=== PATIENT | female | born 1940 | race Caucasian/White ===

== ENCOUNTER 2021-07-27 10:17 | Inpatient (IN) | payer OTHER ==
[2021-07-27 11:39] LABS: Absolute Lymphocytes (CBC) 0.6 K/uL (0.7-4.9); Basophils % 0.2 % (0-1.3); Hematocrit 42.3 % (36.0-45.0); MPV 7.3 fL (7.6-11.3); RBC Red Blood Cell Count 4.66 M/uL (3.86-4.86)
[2021-07-27] MEDS ORDERED: NA CHLORIDE 0.9% 500 ML ONE (11:48)
[2021-07-27] MEDS ORDERED: NA CHLORIDE 0.9% 1,000 ML ONE (11:48)
[2021-07-27 11:56] LABS: Bilirubin Direct 0.2 mg/dL (0-0.2); Bilirubin Total 0.5 mg/dL (0.2-1.0); Potassium 3.5 mmol/L (3.5-5.1); Protein, Total 7.2 g/dL (6.4-8.2)
--- NOTE | 2021-07-27 12:38 | RAD REPORT ---
EXAM DESCRIPTION: CT - Abdomen Pelvis W Contrast - 07/27/2021 12:23 pm CLINICAL HISTORY: Abdominal pain COMPARISON: none. TECHNIQUE: Computed axial tomography of the abdomen pelvis was obtained. 100 cc Isovue-300 was admin istered intravenously. Oral contrast was not requested which limits evaluation of bowel. All CT scans are performed using dose optimization technique as appropriate and may include automated exposure control or mA/KV adjustment according to patient size. FINDINGS: The liver, spleen, pancreas, adrenal and kidneys appear unremarkable. There is no evidence of diverticulitis. Normal appendix. 15 millimeter right adnexal cyst. Small amount of free fluid. Tiny umbilical hernia IMPRESSION: A 15 millimeter right adnexal cyst likely benign. Small amount of ascites within the pelvis.
[2021-07-27] MEDS ORDERED: MORPHINE 2 MG/ML SYR ONE (12:55)
[2021-07-27] MEDS ORDERED: ONDANSETRON 4 MG/2 ML VIAL ONE (12:55)
[2021-07-27 13:20] LABS: Blood Morphology Comment NOT SEEN (NOT SEEN); Platelet Estimate ADEQ; White Blood Cell Scan OK (OK)
[2021-07-27 13:31] LABS: Urine Amorphous Sediment 1+ /HPF (NONE SEEN); Urine Bacteria <20 /HPF (<20); Urine Mucus 1+ /HPF (NONE SEEN); Urine RBC <5 /HPF (NONE SEEN)
[2021-07-27 13:39] LABS: SARS-COV-2 RT PCR NEGATIVE (NEGATIVE)
[2021-07-27] MEDS ORDERED: FENTANYL CITR 100 MCG/2 ML ONE (15:39)
--- NOTE | 2021-07-27 17:12 | ER ---
Nurse's Notes [facility] Name: Rebecca Chan Age: 81 yrs Sex: Female : 1940 Arrival Date: 07/27/2021 Time: 10:21 Bed 20 Private MD: Diagnosis: Diarrhea, unspecified;Dehydration Presentation: 07/27 10:35 Chief complaint: Patient states: pain all over, generalized weakness since yesterday. aa5 Pt reports recent UTI and antibiotics (Flagyl) gave her a yeast infection. Reports antibiotics also gave her diarrhea. Coronavirus screen: At this time, the client does not indicate any symptoms associated with coronavirus-19. Ebola Screen: No symptoms or risks identified at this time. Initial Sepsis Screen: Does the patient meet any 2 criteria? HR > 90 bpm. Does the patient have a suspected source of infection? Yes:. Risk Assessment: Do you want to hurt yourself or someone else? Patient reports no desire to harm self or others. Onset of symptoms was July 2021. 10:35 Acuity: JOHN 3 aa5 10:35 Method Of Arrival: Wheelchair aa5 Triage Assessment: 13:53 General: Appears in no apparent distress. well groomed, Behavior is calm, cooperative, sl2 appropriate for age. 13:59 Pain: Complains of pain in Generalized body pain Pain does not radiate. Pain currently sl2 is 6 out of 10 on a pain scale. Quality of pain is described as aching. Historical: - Allergies: 10:47 Amoxicillin; aa5 10:47 Ciprofloxacin; aa5 10:47 Bactrim; aa5 10:47 Macrobid; aa5 - Home Meds: 17:03 meloxicam 15 mg oral TbDi 1 tab once daily [Active]; lisinopril 1 mg/mL Oral soln 40 mL sl2 once daily [Active]; amlodipine 2.5 mg tab 1 tab once daily [Active]; hyoscyamine sulfate 0.125 mg SL subl 0.125 mg every 4 hours for as needed [Active]; - PMHx: 10:37 Hypertensive disorder; aa5 10:47 osteoarhritis; aa5 - Immunization history:: Adult Immunizations up to date, Client reports receiving the 2nd dose of the Covid vaccine. - Social history:: Smoking status: Patient denies any tobacco usage or history of. Screenin:50 Abuse screen: Denies threats or abuse. sl2 10:50 Nutritional screening: No deficits noted. Tuberculosis screening: No symptoms or risk sl2 factors identified. Never had TB. Possible symptoms: None Risk factors: None. Fall Risk No fall in past 12 months (0 pts). No secondary diagnosis (0 pts). No IV (0 pts). Ambulatory Aid- Crutches/Cane/Walker (15 pts). Gait- Weak (10 pts.). Mental Status- Oriented to own ability (0 pts). Vital Signs: 10:35 BP 116 / 73; Pulse 108; Resp 18 S; Temp 98.0(TE); Pulse Ox 100% on R/A; aa5 12:45 BP 115 / 79; Pulse 115; Resp 20; Pulse Ox 100% on R/A; sl2 13:00 BP 117 / 85; Pulse 120; Resp 18; Temp 98.5; Pulse Ox 99% on R/A; sl2 13:45 BP 116 / 76; Pulse 116; Resp 18; Temp 98.9; Pulse Ox 99% on R/A; sl2 14:00 BP 125 / 75; Pulse 115; Resp 18; Temp 99.2; Pulse Ox 99% on R/A; sl2 14:30 BP 137 / 65; Pulse 115; Resp 18; Pulse Ox 99% on R/A; sl2 14:45 BP 132 / 78; Pulse 118; Resp 18; Pulse Ox 100% on R/A; sl2 15:43 BP 126 / 60 RA Supine (auto/); Pulse 116; Pulse Ox 99% on R/A; dh4 15:43 BP 123 / 68 RA Sitting (auto/); Pulse 125; Pulse Ox 98% on R/A; dh4 15:43 BP 123 / 101 RA Standing (auto/); Pulse 129; Pulse Ox 98% on R/A; dh4 17:00 BP 128 / 93; Pulse 115; Resp 18; Temp 99.8; Pulse Ox 99% ; sl2 ED Course: 10:21 Patient arrived in ED. rg4 10:34 Arm band placed on. aa5 10:37 Triage completed. aa5 10:47 Robinson Hsieh NP is PHCP. pm1 10:47 Edwin Corado MD is Attending Physician. pm1 10:50 Patient has correct armband on for positive identification. Placed in gown. Bed in low sl2 position. Call light in reach. Side rails up X2. Adult w/ patient. 10:50 No provider procedures requiring assistance completed. sl2 10:53 Lizbeth Schumacher, SHAMIKA is Primary Nurse. sl2 11:42 Initial lab(s) drawn, by me, sent to lab. COVID swab sent to lab. Inserted saline lock: sl2 20 gauge in right forearm, using aseptic technique. Blood collected. 12:23 CT Abd/Pelvis - IV Contrast Only In Process Unspecified. EDMS 17:11 Caio Umanzor DO is Hospitalizing Provider. pm1 Administered Medications: 01:00 Drug: morphine 2 mg Route: IVP; Site: right hand; sl2 13:41 Follow up: Response: No adverse reaction; Marked relief of symptoms; Pain is decreased sl2 11:30 Drug: NS 0.9% 500 ml Route: IV; Rate: bolus; Site: right forearm; sl2 12:40 Follow up: Response: No adverse reaction; IV Status: Completed infusion; IV Intake: sl2 500ml 12:42 Drug: NS 0.9% 1000 ml Route: IV; Rate: 125 ml/hr; Site: right hand; sl2 13:44 Follow up: IV Status: Infusion continued sl2 12:58 Drug: Zofran (Ondansetron) 4 mg Route: IVP; Site: right hand; sl2 13:41 Follow up: Response: No adverse reaction; Marked relief of symptoms; Pain is decreased sl2 13:42 Follow up: Response: Nausea is decreased sl2 15:41 Drug: fentaNYL (PF) 25 mcg Route: IVP; Site: right hand; sl2 15:58 Follow up: Response: Marked relief of symptoms sl2 15:57 Drug: NS 0.9% 500 ml Route: IV; Rate: bolus; Site: right hand; sl2 17:43 Follow up: Response: No adverse reaction; IV Status: Completed infusion; IV Intake: iw 500ml Intake: 12:40 IV: 500ml; Total: 500ml. sl2 17:43 IV: 500ml; Total: 1000ml. iw Outcome: 17:11 Decision to Hospitalize by Provider. pm1 18:11 Patient left the ED. iw Signatures: Dispatcher [employer] EDMS Thomas, Kayli, RN RN iw Vicky Henry RN RN aa5 Robinson Hsieh, WASHER ASSEMBLER WASHER ASSEMBLER pm1 Lashell Baxter rg4 Greg Sanchez 4 Lizbeth Schumacher RN RN sl2 Corrections: (The following items were deleted from the chart) 10:47 10:35 Chief complaint: Patient states: pain all over, generalized weakness since aa5 yesterday. Pt reports recent UTI and antibiotics gave her a yeast infection. Reports antibiotics also gave her diarrhea. aa5 10:47 10:46 Allergies: Flagyl; aa5 aa5 10:48 10:37 PMHx: Arthritis; aa5 aa5 14:15 13:45 BP 116 / 76; Pulse 116bpm; Resp 18bpm; Pulse Ox 99% RA; Temp 98.2F; sl2 sl2
--- NOTE | 2021-07-27 17:12 | EDPHYS ---
Physician Documentation [facility] Name: Rebecca Chan Age: 81 yrs Sex: Female : 1940 Arrival Date: 07/27/2021 Time: 10:21 Bed 20 Private MD: ED Physician Edwin Corado HPI: 07/27 11:49 This 81 yrs old Female presents to ER via Wheelchair with complaints of Pain All Over. pm1 11:49 Patient presenting to the ER with complaints of generalized pain all over. Patient has pm1 been having diarrhea onset end of last week that she attributes to recent antibiotic use for UTI. Onset: The symptoms/episode began/occurred Patient also reporting generalized weakness onset yesterday. Associated signs and symptoms: Pertinent positives: diarrhea, Pertinent negatives: abdominal pain, cough, fever, shortness of breath, vomiting. Modifying factors: The patient symptoms are alleviated by Symptoms improved with Pedialyte given to the patient last night by [id number], the patient symptoms are aggravated by nothing. Severity of symptoms: in the emergency department the symptoms have improved. The patient has not experienced similar symptoms in the past. The patient has been recently seen by a physician: the patient's primary care provider, Last week for yeast infection and UTI. Patient is visiting from out of town. Historical: - Allergies: 10:47 Amoxicillin; aa5 10:47 Ciprofloxacin; aa5 10:47 Bactrim; aa5 10:47 Macrobid; aa5 - Home Meds: 17:03 meloxicam 15 mg oral TbDi 1 tab once daily [Active]; lisinopril 1 mg/mL Oral soln 40 mL sl2 once daily [Active]; amlodipine 2.5 mg tab 1 tab once daily [Active]; hyoscyamine sulfate 0.125 mg SL subl 0.125 mg every 4 hours for as needed [Active]; - PMHx: 10:37 Hypertensive disorder; aa5 10:47 osteoarhritis; aa5 - Immunization history:: Adult Immunizations up to date, Client reports receiving the 2nd dose of the Covid vaccine. - Social history:: Smoking status: Patient denies any tobacco usage or history of. ROS: 11:49 Cardiovascular: Negative for chest pain, palpitations, and edema, Respiratory: Negative pm1 for shortness of breath, cough, wheezing, and pleuritic chest pain. 11:49 MS/Extremity: Negative for injury and deformity, Skin: Negative for injury, rash, and discoloration, Neuro: Negative for headache, weakness, numbness, tingling, and seizure. 11:49 Constitutional: Positive for body aches, poor PO intake, Negative for fever. 11:49 Abdomen/GI: Positive for diarrhea, Negative for abdominal pain, nausea, vomiting. 11:49 All other systems are negative. Exam: 11:49 Constitutional: This is a well developed, well nourished patient who is awake, alert, pm1 and in no acute distress. Head/Face: Normocephalic, atraumatic. 11:49 Back: No spinal tenderness. No costovertebral tenderness. Full range of motion. Skin: Warm, dry with normal turgor. Normal color with no rashes, no lesions, and no evidence of cellulitis. MS/ Extremity: Pulses equal, no cyanosis. Neurovascular intact. Full, normal range of motion. 11:49 Eyes: Exam is negative for acute changes, Periorbital structures: appear normal, Extraocular movements: no acute changes, Sclera: no acute changes, icterus, is not appreciated. 11:49 ENT: Exam is negative for acute changes, Mouth: no acute changes, Lips: normal, moist, Oral mucosa: normal, pink and intact, moist. 11:49 Cardiovascular: Exam negative for acute changes, Rate: tachycardic, Rhythm: regular, Pulses: no pulse deficits are appreciated. 11:49 Respiratory: Exam negative for acute changes, respiratory distress, shortness of breath, Breath sounds: are clear throughout. 11:49 Abdomen/GI: Exam negative for acute changes, Inspection: abdomen appears normal, Palpation: abdomen is soft and non-tender, in all quadrants. 11:49 Neuro: Exam negative for acute changes, Orientation: is normal, Mentation: is normal, Motor: is normal, moves all fours. Vital Signs: 10:35 BP 116 / 73; Pulse 108; Resp 18 S; Temp 98.0(TE); Pulse Ox 100% on R/A; aa5 12:45 BP 115 / 79; Pulse 115; Resp 20; Pulse Ox 100% on R/A; sl2 13:00 BP 117 / 85; Pulse 120; Resp 18; Temp 98.5; Pulse Ox 99% on R/A; sl2 13:45 BP 116 / 76; Pulse 116; Resp 18; Temp 98.9; Pulse Ox 99% on R/A; sl2 14:00 BP 125 / 75; Pulse 115; Resp 18; Temp 99.2; Pulse Ox 99% on R/A; sl2 14:30 BP 137 / 65; Pulse 115; Resp 18; Pulse Ox 99% on R/A; sl2 14:45 BP 132 / 78; Pulse 118; Resp 18; Pulse Ox 100% on R/A; sl2 15:43 BP 126 / 60 RA Supine (auto/); Pulse 116; Pulse Ox 99% on R/A; dh4 15:43 BP 123 / 68 RA Sitting (auto/); Pulse 125; Pulse Ox 98% on R/A; dh4 15:43 BP 123 / 101 RA Standing (auto/); Pulse 129; Pulse Ox 98% on R/A; dh4 17:00 BP 128 / 93; Pulse 115; Resp 18; Temp 99.8; Pulse Ox 99% ; sl2 MDM: 10:51 Patient medically screened. pm1 17:11 Data reviewed: vital signs. Data interpreted: Pulse oximetry: on room air is 99 %. pm1 Interpretation: normal. Counseling: I had a detailed discussion with the patient and/or guardian regarding: the historical points, exam findings, and any diagnostic results supporting the discharge/admit diagnosis, lab results, radiology results, the need for further work-up and treatment in the hospital. 07/27 11:02 Order name: Basic Metabolic Panel; Complete Time: 12:19 pm1 07/27 11:02 Order name: CBC with Diff; Complete Time: 13:52 pm1 07/27 11:02 Order name: Hepatic Function; Complete Time: 12:19 pm1 07/27 11:02 Order name: Lipase; Complete Time: 12:19 pm1 07/27 11:02 Order name: Urine Microscopic Only; Complete Time: 13:52 pm1 07/27 11:02 Order name: COVID-19/FLU A+B (Document "Date of Onset" if Symptomatic); Complete Time: pm1 13:52 07/27 11:02 Order name: CT Abd/Pelvis - IV Contrast Only; Complete Time: 12:40 pm1 07/27 13:21 Order name: CBC Smear Scan; Complete Time: 13:52 EDMS 07/27 11:02 Order name: IV Saline Lock; Complete Time: 11:47 pm1 07/27 11:02 Order name: Labs collected and sent; Complete Time: 11:47 pm1 07/27 11:02 Order name: Urine Dipstick-Ancillary (obtain specimen); Complete Time: 13:42 pm1 07/27 11:02 Order name: Straight Cath - Urine; Complete Time: 13:42 pm1 07/27 15:26 Order name: Orthostatic Blood Pressure; Complete Time: 15:47 pm1 07/27 17:44 Order name: Diet Clear Liquid; Complete Time: 17:45 iw Administered Medications: 01:00 Drug: morphine 2 mg Route: IVP; Site: right hand; sl2 13:41 Follow up: Response: No adverse reaction; Marked relief of symptoms; Pain is decreased sl2 11:30 Drug: NS 0.9% 500 ml Route: IV; Rate: bolus; Site: right forearm; sl2 12:40 Follow up: Response: No adverse reaction; IV Status: Completed infusion; IV Intake: sl2 500ml 12:42 Drug: NS 0.9% 1000 ml Route: IV; Rate: 125 ml/hr; Site: right hand; sl2 13:44 Follow up: IV Status: Infusion continued sl2 12:58 Drug: Zofran (Ondansetron) 4 mg Route: IVP; Site: right hand; sl2 13:41 Follow up: Response: No adverse reaction; Marked relief of symptoms; Pain is decreased sl2 13:42 Follow up: Response: Nausea is decreased sl2 15:41 Drug: fentaNYL (PF) 25 mcg Route: IVP; Site: right hand; sl2 15:58 Follow up: Response: Marked relief of symptoms sl2 15:57 Drug: NS 0.9% 500 ml Route: IV; Rate: bolus; Site: right hand; sl2 17:43 Follow up: Response: No adverse reaction; IV Status: Completed infusion; IV Intake: iw 500ml Disposition: 07/28 08:14 Co-signature as Attending Physician, Edwin Corado MD I agree with the assessment and kdr plan of care. Disposition Summary: 07/27/21 17:11 Hospitalization Ordered Hospitalization Status: Observation pm1 Provider: Caio Umanzor pm1 Location: Telemetry/MedSurg (observation) pm1 Condition: Stable pm1 Problem: new pm1 Symptoms: have improved pm1 Bed/Room Type: Standard pm1 Room Assignment: 408(07/27/21 17:42) dw Diagnosis - Diarrhea, unspecified pm1 - Dehydration pm1 Forms: - Medication Reconciliation Form pm1 - SBAR form pm1 Signatures: Dispatcher [employer] Judy Puga RN RN Edwin Corado MD MD kdr Calderon, Audri, RN RN aa5 Robinson Hsieh NP WELLNESS NURSE pm1 Lizbeth Schumacher RN RN sl2 Kayli Guzman RN iw Corrections: (The following items were deleted from the chart) 07/27 10:47 10:46 Allergies: Flagyl; aa5 aa5 10:48 10:37 PMHx: Arthritis; aa5 aa5 17:42 17:11 pm1 dw
--- NOTE | 2021-07-27 17:31 | P.HP ---
Certification for Inpatient Patient admitted to: Observation With expected LOS: <2 Midnights Patient will require the following post-hospital care: None Practitioner: I am a practitioner with admitting privileges, knowledge of patient current condition, hospital course, and medical plan of care. Services: Services provided to patient in accordance with Admission requirements found in Title 42 Section 412.3 of the Code of Federal Regulations Patient History Date of Service: 07/27/21 Primary Care Provider: BECKY Martell Reason for admission: Diarrhea, body aches History of Present Illness: 81-year-old female with history of hypertension, arthritis presented to the emergency room with diarrhea and body aches. Patient is visiting in the area. Patient recently diagnosed with UTI. She was given antibiotic treatment by her PCP. She took medication for 3 days and started to notice some diarrhea. She called her PCP who recommended to discontinue medication. She came to the area to visit. Diarrhea was noted. She denied any fever, chills, shortness of breath or chest pain. She had some weakness and body aches today. She came to the ER for further evaluation. In the ER patient was evaluated. Patient appeared slightly dehydrated. Patient received IV fluids. White count 12, hemoglobin 14. Platelet count 425. Urinalysis unremarkable. Sodium 130, potassium 3.5. BUN of 20, creatinine 1.36 with a GFR of 37. Glucose 153. CT scan showed no significant obstruction or inflammation. Patient was given IV fluids in the emergency room. Patient was admitted for observation. Home medications list reviewed: Yes - Past Medical/Surgical History Diabetic: No -: Hypertension -: Arthritis Past Surgical History: Reviewed- Non-Contributory Psychosocial/ Personal History: Patient is - Family History Family History: Reviewed- Non-Contributory - Social History Smoking Status: Never smoker Alcohol use: No CD- Drugs: No Caffeine use: No Place of Residence: Home Review of Systems General: Weakness, As per HPI Eyes: Unremarkable ENT: Unremarkable Respiratory: Unremarkable Cardiovascular: Unremarkable Gastrointestinal: Diarrhea, As per HPI Genitourinary: Unremarkable Musculoskeletal: As per HPI Integumentary: Unremarkable Neurological: Unremarkable Lymphatics: Unremarkable Physical Examination - Studies Laboratory Data (last 24 hrs) 07/27/21 11:10: WBC 12.00 H, Hgb 14.4, Hct 42.3, Plt Count 425 H 07/27/21 11:10: Sodium 130 L, Potassium 3.5, BUN 20 H, Creatinine 1.36 H, Glucose 153 H, Total Bilirubin 0.5, AST 16, ALT 18, Alkaline Phosphatase 82, Lipase 187 Assessment and Plan - Plan COVID: Pending CT scan: COMPARISON: none. TECHNIQUE: Computed axial tomography of the abdomen pelvis was obtained. 100 cc Isovue-300 was administered intravenously. Oral contrast was not requested which limits evaluation of bowel. All CT scans are performed using dose optimization technique as appropriate and may include automated exposure control or mA/KV adjustment according to patient size. FINDINGS: The liver, spleen, pancreas, adrenal and kidneys appear unremarkable. There is no evidence of diverticulitis. Normal appendix. 15 millimeter right adnexal cyst. Small amount of free fluid. Tiny umbilical hernia IMPRESSION: A 15 millimeter right adnexal cyst likely benign. Small amount of ascites within the pelvis. Physical Exam: GENERAL: The patient is a well-developed, well-nourished, in no apparent distress. Alert and oriented x3. VITAL SIGNS: Reviewed HEENT: Head is normocephalic and atraumatic. Extraocular muscles are intact. Pupils are equal, round, and reactive to light and accommodation. Nares appeared normal. Mouth is well hydrated and without lesions. Mucous membranes are moist. NECK: Supple. No carotid bruits. No lymphadenopathy or thyromegaly. LUNGS: Clear to auscultation. No crackles or wheezes are heard. HEART: Regular rate and rhythm, no appreciable gallops, rubs, murmurs or extra heart sounds ABDOMEN: Soft, nontender, and nondistended. Positive bowel sounds. No hepatosplenomegaly was noted. EXTREMITIES: Without any cyanosis, clubbing, rash, lesions or peripheral edema. NEUROLOGIC: The patient is oriented to person, place and time. Strength and sensation are grossly intact. Face is symmetric. SKIN: Normal color, turgor and temperature. No ulcerations or rashes noted. Impression: Diarrhea, body aches suspect viral gastroenteritis with dehydration Hyponatremia secondary to above Possible underlying acute on chronic renal disease stage III Hypertension Arthritis Plan: Patient admitted for further evaluation and treatment. Patient recently treated for UTI. Antibiotics have been discontinued. Patient received IV fluids. We will continue with IV fluid hydration. Recheck lab in the morning. Electrolyte protocol in place. Will provide lactobacillus. Will provide medication for diarrhea. If diarrhea persists will obtain evaluation for C. difficile. Suspect improvement with hydration. Continue with home medication lisinopril. Hold Norvasc. Will provide metoprolol instead. Will make changes to her medications as appropriate. Will provide medication for GERD. Hold meloxicam which she takes for arthritis. Will provide tramadol as needed for pain. Monitor renal function closely. Anticipate improvement overnight. Physical therapy assess ambulation. Case discussed in detail with patient and family. Anticipate home tomorrow. Code Status: Full Code DVT prophylaxis: Heparin Advanced Care Planning-30 minutes: Home at discharge Discharge Plan: Home Plan to discharge in: 24 Hours - Advance Directives Does patient have a Living Will: No Does patient have a Durable POA for Healthcare: No - Code Status/Comfort Care Code Status Assessed: Yes (Patient is full code) Time Spent Managing Pts Care (In Minutes): 55
[2021-07-27 18:31] VITALS: BMI 23.2
[2021-07-27] MEDS: METOPROLOL TAR 25 MG TAB PO SCH (18:31)
[2021-07-27] MEDS ORDERED: ACETAMINOPHEN 500 MG TAB PO PRN (18:31)
[2021-07-27] MEDS ORDERED: ONDANSETRON 4 MG/2 ML VIAL IV PRN (18:31)
[2021-07-27] MEDS: NA CHLORIDE 0.9% 1,000 ML IV SCH (18:31)
[2021-07-27] MEDS ORDERED: LOPERAMIDE HCL 2 MG CAPSULE PO PRN (18:31)
[2021-07-27] MEDS: lisinopriL 20 MG TAB PO SCH (21:40)
[2021-07-27] MEDS: HEPARIN 5000 UNIT/ML 1 ML VIAL SQ SCH (21:41)
[2021-07-27] MEDS: LACTOBACILLUS/ACIDOPHILUS TAB PO SCH (21:41)
[2021-07-28] MEDS ORDERED: CIPROFLOXACIN 400mg IV 400 MG/200 ML BAG IV SCH
[2021-07-28] MEDS ORDERED: METRONIDAZOLE 500mg IVPB 500 MG/100 ML BAG IV SCH (01:00)
[2021-07-28 04:13] LABS: Absolute Lymphocytes (CBC) 0.4 K/uL (0.7-4.9); Basophils % 0.1 % (0-1.3); Hematocrit 35.7 % (36.0-45.0); Lymphocytes % 3.3 % (15.3-44.8); MPV 7.4 fL (7.6-11.3)
[2021-07-28 04:30] LABS: Albumin 2.1 g/dL (3.4-5.0); Bilirubin Total 0.4 mg/dL (0.2-1.0); Magnesium 1.6 mg/dL (1.8-2.4); Protein, Total 5.7 g/dL (6.4-8.2)
[2021-07-28 05:38] LABS: Blood Morphology Comment NOT SEEN (NOT SEEN); Platelet Estimate ADEQ
[2021-07-28] MEDS: METOPROLOL TAR 25 MG TAB PO SCH ×2 (06:06→17:13)
--- NOTE | 2021-07-28 06:09 | P.PN ---
Subjective Date of Service: 07/28/21 Primary Care Provider: BECKY Martell Chief Complaint: Diarrhea, body aches Subjective: Other (Patient had increased diarrhea last night with fever. T-max 103.4) Physical Examination - Vital Signs Temperature: 98.3 F Blood Pressure: 127/64 Pulse: 113 Respirations: 22 Pulse Ox (%): 94 - Studies Laboratory Data (last 24 hrs) 07/27/21 11:10: WBC 12.00 H, Hgb 14.4, Hct 42.3, Plt Count 425 H 07/27/21 11:10: Sodium 130 L, Potassium 3.5, BUN 20 H, Creatinine 1.36 H, Glucose 153 H, Total Bilirubin 0.5, AST 16, ALT 18, Alkaline Phosphatase 82, Lipase 187 Assessment & Plan Discharge Plan: Home Plan to discharge in: 24 Hours Physician Review Additional Text: COVID: Pending CT scan: COMPARISON: none. TECHNIQUE: Computed axial tomography of the abdomen pelvis was obtained. 100 cc Isovue-300 was administered intravenously. Oral contrast was not requested which limits evaluation of bowel. All CT scans are performed using dose optimization technique as appropriate and may include automated exposure control or mA/KV adjustment according to patient size. FINDINGS: The liver, spleen, pancreas, adrenal and kidneys appear unremarkable. There is no evidence of diverticulitis. Normal appendix. 15 millimeter right adnexal cyst. Small amount of free fluid. Tiny umbilical hernia IMPRESSION: A 15 millimeter right adnexal cyst likely benign. Small amount of ascites within the pelvis. Physical Exam: GENERAL: The patient is a well-developed, well-nourished, in no apparent distress. Alert and oriented x3. VITAL SIGNS: Reviewed HEENT: Neck supple LUNGS: Clear to auscultation. No crackles or wheezes are heard. HEART: Regular rate and rhythm, no appreciable gallops, rubs, murmurs or extra heart sounds ABDOMEN: Soft, nontender, and nondistended. Positive bowel sounds. No hepatosplenomegaly was noted. EXTREMITIES: Without any cyanosis, clubbing, rash, lesions or peripheral edema. NEUROLOGIC: The patient is oriented to person, place and time. Strength and sensation are grossly intact. Face is symmetric. SKIN: Normal color, turgor and temperature. No ulcerations or rashes noted. Impression: Diarrhea, body aches with dehydration likely C. difficile colitis Hyponatremia secondary to above Possible underlying acute on chronic renal disease stage III Hypertension Arthritis Plan: Diarrhea, body aches with dehydration likely C. difficile colitis: Patient had fever last night with diarrhea. Patient recently treated for UTI on antibiotic therapy. Suspect C. difficile colitis. Continue with lactobacillus. Patient was initially placed on IV Cipro and Flagyl. Will change to oral vancomycin as c diff is suspected. Cultures pending. Will monitor diarrhea closely. Continue IV hydration. Still unstable for discharge. Suspect continued improvement over the next 24 to 48 hours. I will turn the service over to the hospitalist team tomorrow. I will plan of care with him. Hyponatremia secondary to above: Overall improved. Continue IV fluids. Electrolyte protocol in place. Possible underlying acute on chronic renal disease stage III: Overall improved. Continue IV fluids. Hypertension: Need to obtain and verify home medication. Patient takes lisinopril and Norvasc. Lisinopril was continued. Norvasc was changed to metoprolol. Consider lisinopril and metoprolol at discharge. Parameters in place to hold medication if blood pressure systolic less than 110. Arthritis: We will provide medication for pain. Physical therapy to assess ambulation. Code Status: Full Code DVT prophylaxis: Heparin Advanced Care Planning-30 minutes: Home at discharge Time Spent Managing Pts Care (In Minutes): 55
--- NOTE | 2021-07-28 07:20 | RAD REPORT ---
EXAM DESCRIPTION: RAD - Chest Single View - 07/28/2021 5:37 am CLINICAL HISTORY: R/O pneumonia COMPARISON: CT abdomen July 27 TECHNIQUE: AP portable chest image was obtained 07/28/2021 5:37 am . FINDINGS: No acute infiltrates seen. Minimal stranding in the left base is not believed to be pneumo yordan. Lung bases were clear on the prior day CT study. Repeat imaging can be performed as warranted. No failure or volume overload. Interstitial pattern not outside of normal range. Trachea is midline. Heart and vasculature are normal. No measurable pleural effusion and no pneumothorax. No acute bony abnormality seen. No acute aortic findings suspected. IMPRESSION: No acute cardiopulmonary process. Minimal stranding at the left base is believed be atelectasis rather than infiltrate. Follow-up imagi ng can be performed if patient has persistent or progressive symptoms.
[2021-07-28] MEDS: NA CHLORIDE 0.9% 1,000 ML IV SCH ×2 (08:11→15:01)
[2021-07-28] MEDS: FAMOTIDINE 20 MG TAB PO SCH (08:12)
[2021-07-28] MEDS: lisinopriL 20 MG TAB PO SCH ×2 (08:13→21:33)
[2021-07-28] MEDS: HEPARIN 5000 UNIT/ML 1 ML VIAL SQ SCH ×2 (08:13→21:32)
[2021-07-28] MEDS: FOLIC ACID 1 MG TABLET PO SCH (08:13)
[2021-07-28] MEDS: THIAMINE HCL 100 MG TABLET PO SCH (08:13)
[2021-07-28] MEDS: LACTOBACILLUS/ACIDOPHILUS TAB PO SCH ×3 (08:13→21:34)
[2021-07-28] MEDS ORDERED: MAGNESIUM SULFATE 1 gm IVPB 1 GM/100 ML BAG IV ONE (09:00)
[2021-07-28] MEDS ORDERED: POTASSIUM CL SA 10 MEQ TAB PO ONE ×2 (09:00→21:00)
[2021-07-28] MEDS ORDERED: VANCOMYCIN ORAL SOLN 250 MG/5 ML OSYR PO SCH (12:00)
[2021-07-28 13:12] LABS: C.diff Antigen/Toxin Ag neg : Tox neg (NEG : NEG)
[2021-07-28] MEDS: TRAMADOL HCL 50 MG TAB PO PRN (15:00)
[2021-07-28] MEDS: METRONIDAZOLE 500mg IVPB 500 MG/100 ML BAG IV SCH (17:14)
[2021-07-28] MEDS: CIPROFLOXACIN 400mg IV 400 MG/200 ML BAG IV SCH (21:32)
[2021-07-29] MEDS: TRAMADOL HCL 50 MG TAB PO PRN ×3 (00:21→14:19)
[2021-07-29] MEDS: METRONIDAZOLE 500mg IVPB 500 MG/100 ML BAG IV SCH ×2 (00:23→09:05)
[2021-07-29] MEDS: NA CHLORIDE 0.9% 1,000 ML IV SCH ×4 (00:25→21:38)
[2021-07-29 04:05] LABS: Albumin 1.9 g/dL (3.4-5.0); Bilirubin Total 0.3 mg/dL (0.2-1.0); Magnesium 2.2 mg/dL (1.8-2.4); Protein, Total 5.4 g/dL (6.4-8.2)
[2021-07-29] MEDS: METOPROLOL TAR 25 MG TAB PO SCH ×2 (05:33→18:13)
[2021-07-29] MEDS: CIPROFLOXACIN 400mg IV 400 MG/200 ML BAG IV SCH ×2 (09:04→21:39)
[2021-07-29] MEDS: lisinopriL 20 MG TAB PO SCH ×2 (09:05→21:41)
[2021-07-29] MEDS: LACTOBACILLUS/ACIDOPHILUS TAB PO SCH ×3 (09:05→21:41)
[2021-07-29] MEDS: HEPARIN 5000 UNIT/ML 1 ML VIAL SQ SCH ×2 (09:05→21:40)
[2021-07-29] MEDS: FOLIC ACID 1 MG TABLET PO SCH (09:06)
[2021-07-29] MEDS: FAMOTIDINE 20 MG TAB PO SCH (09:06)
[2021-07-29] MEDS: THIAMINE HCL 100 MG TABLET PO SCH (09:06)
--- NOTE | 2021-07-29 10:41 | P.PN ---
Date of Service: 07/29/21 Subject, Today she is doing well, no CP or SOB, no abd pain , still with mild diarrhea but no abd pain, at the bedside CT scan: COMPARISON: none. TECHNIQUE: Computed axial tomography of the abdomen pelvis was obtained. 100 cc Isovue-300 was administered intravenously. Oral contrast was not requested which limits evaluation of bowel. All CT scans are performed using dose optimization technique as appropriate and may include automated exposure control or mA/KV adjustment according to patient size. FINDINGS: The liver, spleen, pancreas, adrenal and kidneys appear unremarkable. There is no evidence of diverticulitis. Normal appendix. 15 millimeter right adnexal cyst. Small amount of free fluid. Tiny umbilical hernia IMPRESSION: A 15 millimeter right adnexal cyst likely benign. Small amount of ascites within the pelvis. Physical Exam: VS reviewed GENERAL: The patient is a well-developed, well-nourished, in no apparent distress. Alert and oriented x3 fail not steady on her feet VITAL SIGNS: Reviewed HEENT: Neck supple LUNGS: Clear to auscultation. No crackles or wheezes are heard. HEART: Regular rate and rhythm, no appreciable gallops, rubs, murmurs or extra heart sounds ABDOMEN: Soft, nontender, and nondistended. Positive bowel sounds. No hepatosplenomegaly was noted. EXTREMITIES: Without any cyanosis, clubbing, rash, lesions or peripheral edema. NEUROLOGIC: The patient is oriented to person, place and time. Strength and sensation are grossly intact. SKIN: Normal color, turgor and temperature. No ulcerations or rashes noted. Impression: Diarrhea, body aches with dehydration likely C. difficile colitis Hyponatremia secondary to above Possible underlying acute on chronic renal disease stage III Hypertension Arthritis Plan: Diarrhea, body aches with dehydration likely C. difficile colitis: today diarrhea better, fever resolved, diarrhea improved but still less frequently though , C diff was neg , will stop flagyl and cipro in AM if diarrhea resolved dehyration worse, will give more IV fluids and hoping for DC in am will change imodium to schedule and add lomotil today Hyponatremia secondary to above: -Better on IV fluids Possible underlying acute on chronic renal disease stage III: -Worse will add bolus of 500 cc of NACL, cont 100cc/hours Hypertension: -Well controlled today cont lisinopril and Norvasc. Arthritis: on pain meds PRN, cont PT Code Status: Full Code DVT prophylaxis: Heparin Advanced Care Planning-30 minutes: Home at discharge
[2021-07-29] MEDS ORDERED: NA CHLORIDE 0.9% 500 ML IV ONE (11:00)
[2021-07-29] MEDS: DIPHENOX/ATROP SULF 1 TAB PO SCH ×2 (12:34→16:20)
[2021-07-29] MEDS: LOPERAMIDE HCL 2 MG CAPSULE PO SCH ×6 (12:34→21:39)
[2021-07-30] MEDS: LOPERAMIDE HCL 2 MG CAPSULE PO SCH ×13 (00:36→23:00)
[2021-07-30] MEDS: DIPHENOX/ATROP SULF 1 TAB PO SCH ×5 (00:37→21:55)
[2021-07-30] MEDS: METOPROLOL TAR 25 MG TAB PO SCH ×2 (05:22→17:59)
[2021-07-30] MEDS: NA CHLORIDE 0.9% 1,000 ML IV SCH ×3 (05:23→21:38)
[2021-07-30 06:45] LABS: Albumin 1.7 g/dL (3.4-5.0); Bilirubin Total 0.4 mg/dL (0.2-1.0); Potassium 3.9 mmol/L (3.5-5.1); Protein, Total 5.5 g/dL (6.4-8.2)
[2021-07-30] MEDS ORDERED: POTASSIUM CL SA 10 MEQ TAB PO ONE (09:00)
[2021-07-30] MEDS: lisinopriL 20 MG TAB PO SCH ×2 (09:29→21:38)
[2021-07-30] MEDS: FAMOTIDINE 20 MG TAB PO SCH (09:29)
[2021-07-30] MEDS: LACTOBACILLUS/ACIDOPHILUS TAB PO SCH ×3 (09:29→21:38)
[2021-07-30] MEDS: THIAMINE HCL 100 MG TABLET PO SCH (09:29)
[2021-07-30] MEDS: FOLIC ACID 1 MG TABLET PO SCH (09:29)
[2021-07-30] MEDS: CIPROFLOXACIN 400mg IV 400 MG/200 ML BAG IV SCH ×2 (09:30→21:00)
[2021-07-30] MEDS: HEPARIN 5000 UNIT/ML 1 ML VIAL SQ SCH ×2 (09:31→21:38)
--- NOTE | 2021-07-30 10:35 | P.DS ---
Admission Date: 07/28/21 Discharge Date: 07/30/21 Primary Care Provider: BECKY Martell Disposition: ROUTINE DISCHARGE Discharge Condition: GOOD Reason for Admission: Diarrhea, body aches Procedures: CT scan: COMPARISON: none. TECHNIQUE: Computed axial tomography of the abdomen pelvis was obtained. 100 cc Isovue-300 was administered intravenously. Oral contrast was not requested which limits evaluation of bowel. All CT scans are performed using dose optimization technique as appropriate and may include automated exposure control or mA/KV adjustment according to patient size. FINDINGS: The liver, spleen, pancreas, adrenal and kidneys appear unremarkable. There is no evidence of diverticulitis. Normal appendix. 15 millimeter right adnexal cyst. Small amount of free fluid. Tiny umbilical hernia IMPRESSION: A 15 millimeter right adnexal cyst likely benign. Small amount of ascites within the pelvis. Brief History of Present Illness: 81-year-old female with history of hypertension, arthritis presented to the emergency room with diarrhea and body aches. Patient is visiting in the area. Patient recently diagnosed with UTI. She was given antibiotic treatment by her PCP. She took medication for 3 days and started to notice some diarrhea. She called her PCP who recommended to discontinue medication. She denied any fever, chills, shortness of breath or chest pain. She had some weakness and body aches upon admission In the ER patient was evaluated. Patient appeared slightly dehydrated. Patient received IV fluids. White count 12, hemoglobin 14. Platelet count 425. Urinalysis unremarkable. Sodium 130, potassium 3.5. BUN of 20, creatinine 1.36 with a GFR of 37. Glucose 153. CT scan showed no significant obstruction or inflammation. Patient was given IV fluids in the emergency room. Patient was admitted for observation. Hospital Course: Upon admission stool culture was sent, C diff ruled out,pt was stated on IV abx with flagyl and cipro, but flagyl stopped after C Diff Ruled out, she was cont on fluids and cipro , she only have one BM today , her diarrhea improved, and she will be DC patient home, on PRN imodium and to complete course of 10 days of cipro Hospital course was complicated by mild hyponatemia, which was corrected with fluids as well as renal insuff improved Cr today 1.5 , her BP was controlled with home meds with lisinopril and Norvasc. She will be DC in stable condition today , PT evaluated her and she did not do great but she insist to leave stating her will take care of her Physical Exam: GENERAL: The patient is a well-developed, well-nourished, in no apparent distress. Alert and oriented x3 fail not steady on her feet VITAL SIGNS: Reviewed HEENT: Neck supple LUNGS: Clear to auscultation. No crackles or wheezes are heard. HEART: Regular rate and rhythm, no appreciable gallops, rubs, murmurs or extra heart sounds ABDOMEN: Soft, nontender, and nondistended. Positive bowel sounds. No hepatosplenomegaly was noted. EXTREMITIES: Without any cyanosis, clubbing, rash, lesions or peripheral edema. NEUROLOGIC: The patient is oriented to person, place and time. Strength and sensation are grossly intact. SKIN: Normal color, turgor and temperature. No ulcerations or rashes noted. Vital Signs/Physical Exam: Temp Pulse Resp BP Pulse Ox 98.2 F 100 H 18 137/72 98 07/30/21 08:00 07/30/21 08:00 07/30/21 08:00 07/30/21 08:00 07/30/21 08:00 Laboratory Data at Discharge: WBC 11.10 K/uL (4.3-10.9) H 07/28/21 03:40 Hgb 12.0 g/dL (12.0-15.0) 07/28/21 03:40 Hct 35.7 % (36.0-45.0) L D 07/28/21 03:40 Plt Count 339 K/uL (152-406) D 07/28/21 03:40 Sodium 138 mmol/L (136-145) 07/30/21 05:35 Potassium 3.9 mmol/L (3.5-5.1) 07/30/21 05:35 BUN 34 mg/dL (7-18) H 07/30/21 05:35 Creatinine 1.55 mg/dL (0.55-1.3) H 07/30/21 05:35 Glucose 78 mg/dL (74-106) 07/30/21 05:35 Magnesium 2.2 mg/dL (1.8-2.4) D 07/29/21 03:05 Total Bilirubin 0.4 mg/dL (0.2-1.0) 07/30/21 05:35 AST 20 U/L (15-37) 07/30/21 05:35 ALT 14 U/L (12-78) 07/30/21 05:35 Alkaline Phosphatase 69 U/L (45-117) 07/30/21 05:35 Lipase 187 U/L (73-393) 07/27/21 11:10 Home Medications: Amlodipine [Norvasc*] 2.5 mg PO DAILY 07/27/21 Hyoscyamine Sulfate [Levsin TAB*] 0.125 mg SL Q4H PRN 07/27/21 Lisinopril [Zestril] 40 mg PO DAILY 07/27/21 Meloxicam [Mobic] 15 mg PO DAILY 07/27/21 Ciprofloxacin HCl [Cipro 500 MG Tablet] 500 mg PO BID #20 tab 07/30/21 Loperamide [Imodium*] 2 mg PO Q2H cap 07/30/21 New Medications: Ciprofloxacin HCl [Cipro 500 MG Tablet] 500 mg PO BID #20 tab Physician Discharge Instructions: Follow up with PCP this wk Diet: AHA Activity: Ad julian Followup: NONE,NONE [Primary Care Provider] -
--- NOTE | 2021-07-30 15:47 | CON ---
Date of Consultation: 07/30/2021 Reason For Consultation: Irregular heart rhythm. History Of Present Illness: An 81-year-old female, who was brought into the emergency room because o f significant dehydration due to gastroenteritis and diarrhea. Cardiology was consulted due to irreg ular heart rhythm. The patient was treated and was planned for discharge today. I evaluated the pat ient by bedside. She has no specific cardiac complaints or cardiac history except atrial fibrillatio n and denies having any chest pain or shortness of breath or palpitations. Past Medical History: Hypertension, arthritis, AFib. Medications: Refer reconciliation sheet for detailed list. Allergies: AMOXICILLIN. Family History: No premature coronary artery disease or cancer. Social History: Does not smoke or drink. Does not use any drugs. Review of Systems: All systems reviewed and they were negative except for mentioned in the HPI. Physical Examination: Vital Signs: Reviewed. Heart rate is 100 to 105, blood pressure was 148/105, temperature is 98.5, b reathing at 17. General: Pleasant, elderly female, no apparent distress. Head and Neck: Pupils are equal, reactive to light. Intact eye movements. No JVD. No cervical lym phadenopathy. Neck: Supple. Thyroid is not enlarged. Lungs: Clear to auscultation bilaterally. No rhonchi, rales, or crackles. No accessory muscle use. Heart: Irregularly irregular. No extra sounds. Abdomen: Soft, nontender. Bowel sounds positive. No organomegaly. No masses or hernia. No rigidi ty or rebound. Extremities: No clubbing or cyanosis. Intact pulses. Skin: No rash. Neurologic: Alert, awake, oriented x3. No acute focal deficits appreciated. Investigations: Labs were reviewed. Assessment And Recommendations: Atrial fibrillation. Rate is borderline. Recommend to increase met oprolol to 25 mg twice a day and if the blood pressure goes low, then can cut down on the JANENE inhibit or for the purpose of having better rate control. This patient has CHADS-VASc score of at least 4. She will definitely need an anticoagulation if there is no contraindication. At any rate, from Cardi ology standpoint, it is okay for the patient to be discharged and have her follow up with me in the o ffice sometime next week to carry on further management for atrial fibrillation. Thank you for the consult. /MODL Voice ID: [id number] Report ID: [id number]
[2021-07-31] MEDS: LOPERAMIDE HCL 2 MG CAPSULE PO SCH ×12 (01:00→23:30)
[2021-07-31] MEDS: DIPHENOX/ATROP SULF 1 TAB PO SCH ×4 (05:03→23:30)
[2021-07-31] MEDS: METOPROLOL TAR 25 MG TAB PO SCH ×2 (05:03→16:36)
[2021-07-31 06:47] LABS: Potassium 3.9 mmol/L (3.5-5.1)
[2021-07-31] MEDS ORDERED: POTASSIUM CL SA 10 MEQ TAB PO ONE (09:00)
[2021-07-31] MEDS: lisinopriL 20 MG TAB PO SCH ×2 (09:01→21:36)
[2021-07-31] MEDS: FOLIC ACID 1 MG TABLET PO SCH (09:02)
[2021-07-31] MEDS: FAMOTIDINE 20 MG TAB PO SCH (09:02)
[2021-07-31] MEDS: LACTOBACILLUS/ACIDOPHILUS TAB PO SCH ×3 (09:02→21:36)
[2021-07-31] MEDS: THIAMINE HCL 100 MG TABLET PO SCH (09:02)
[2021-07-31] MEDS: HEPARIN 5000 UNIT/ML 1 ML VIAL SQ SCH ×2 (09:03→21:36)
[2021-07-31] MEDS: CIPROFLOXACIN 400mg IV 400 MG/200 ML BAG IV SCH ×2 (09:04→21:35)
[2021-07-31 10:55] LABS: Absolute Lymphocytes (CBC) 0.6 K/uL (0.7-4.9); Basophils % 0.1 % (0-1.3); Hematocrit 33.2 % (36.0-45.0); Lymphocytes % 4.3 % (15.3-44.8); MPV 6.7 fL (7.6-11.3); RBC Red Blood Cell Count 3.59 M/uL (3.86-4.86)
[2021-07-31 11:31] LABS: Platelet Estimate ADEQ
[2021-07-31 11:32] LABS: Albumin 1.6 g/dL (3.4-5.0); Bilirubin Total 0.5 mg/dL (0.2-1.0); Blood Morphology Comment NOT SEEN (NOT SEEN); Potassium 3.9 mmol/L (3.5-5.1); Protein, Total 5.4 g/dL (6.4-8.2); Toxic Granulation 1+
--- NOTE | 2021-07-31 12:06 | P.PN ---
Subjective Date of Service: 07/31/21 Primary Care Provider: BECKY Martell Chief Complaint: Diarrhea, body aches Today she is doing same, still with some diarrhea, no CP or abd pain, no fever or chills, appetite average, she agreed to go to facility was seen by cardiology yesterday and DC aborted due excessive weakness and family want facility Physical Examination - Vital Signs Temperature: 98.6 F Blood Pressure: 105/59 Pulse: 94 Respirations: 18 Pulse Ox (%): 94 - Studies Microbiology Data (last 24 hrs): 07/28/21 00:48 Blood - Blood Aerobic Blood Culture - Final 07/28/21 00:48 Blood - Blood Blood Culture Gram Stain - Final Assessment & Plan Physician Review Additional Text: COVID: Pending CT scan: COMPARISON: none. TECHNIQUE: Computed axial tomography of the abdomen pelvis was obtained. 100 cc Isovue-300 was administered intravenously. Oral contrast was not requested which limits evaluation of bowel. All CT scans are performed using dose optimization technique as appropriate and may include automated exposure control or mA/KV adjustment according to patient size. FINDINGS: The liver, spleen, pancreas, adrenal and kidneys appear unremarkable. There is no evidence of diverticulitis. Normal appendix. 15 millimeter right adnexal cyst. Small amount of free fluid. Tiny umbilical hernia IMPRESSION: A 15 millimeter right adnexal cyst likely benign. Small amount of ascites within the pelvis. Physical Exam: GENERAL: The patient is a well-developed, well-nourished, in no apparent distress. Alert and oriented x3. VITAL SIGNS: Reviewed HEENT: Neck supple LUNGS: Clear to auscultation. No crackles or wheezes are heard. HEART: Regular rate and rhythm, no appreciable gallops, rubs, murmurs or extra heart sounds ABDOMEN: Soft, nontender, and nondistended. Positive bowel sounds. No hepatosplenomegaly was noted. EXTREMITIES: Without any cyanosis, clubbing, rash, lesions or peripheral edema. NEUROLOGIC: The patient is oriented to person, place and time. Strength and sensation are grossly intact. Face is symmetric. SKIN: Normal color, turgor and temperature. No ulcerations or rashes noted. Impression: Diarrhea, body aches with dehydration likely C. difficile colitis Hyponatremia secondary to above Possible underlying acute on chronic renal disease stage III Hypertension Arthritis Plan: Diarrhea, body aches with dehydration likely C. difficile colitis: Patient had fever last night with diarrhea. Patient recently treated for UTI on antibiotic therapy. Suspect C. difficile colitis. Continue with lactobacillus. Patient was initially placed on IV Cipro and Flagyl. Will change to oral vancomycin as c diff is suspected. Cultures pending. Will monitor diarrhea closely. Continue IV hydration. Still unstable for discharge. Suspect continued improvement over the next 24 to 48 hours. I will turn the service over to the hospitalist team tomorrow. I will plan of care with him. Hyponatremia secondary to above: Overall improved. Continue IV fluids. Electrolyte protocol in place. Possible underlying acute on chronic renal disease stage III: Overall improved. Continue IV fluids. Hypertension: Need to obtain and verify home medication. Patient takes lisinopril and Norvasc. Lisinopril was continued. Norvasc was changed to metoprolol. Consider lisinopril and metoprolol at discharge. Parameters in place to hold medication if blood pressure systolic less than 110. Arthritis: We will provide medication for pain. Physical therapy to assess ambulation. Code Status: Full Code DVT prophylaxis: Heparin Advanced Care Planning-30 minutes: Home at discharge
--- NOTE | 2021-07-31 12:12 | P.PN ---
Subject, Today she is doing well, no CP or SOB, no abd pain , still with mild diarrhea she had 3 bm, but no abd pain, DC aborted yesterday since family want placement due to her weakness CT scan: COMPARISON: none. TECHNIQUE: Computed axial tomography of the abdomen pelvis was obtained. 100 cc Isovue-300 was administered intravenously. Oral contrast was not requested which limits evaluation of bowel. All CT scans are performed using dose optimization technique as appropriate and may include automated exposure control or mA/KV adjustment according to patient size. FINDINGS: The liver, spleen, pancreas, adrenal and kidneys appear unremarkable. There is no evidence of diverticulitis. Normal appendix. 15 millimeter right adnexal cyst. Small amount of free fluid. Tiny umbilical hernia IMPRESSION: A 15 millimeter right adnexal cyst likely benign. Small amount of ascites within the pelvis. Physical Exam: VS reviewed GENERAL: The patient is a well-developed, well-nourished, in no apparent distress. Alert and oriented x3 fail not steady on her feet VITAL SIGNS: Reviewed HEENT: Neck supple LUNGS: Clear to auscultation. No crackles or wheezes are heard. HEART: Regular rate and rhythm, no appreciable gallops, rubs, murmurs or extra heart sounds ABDOMEN: Soft, nontender, and nondistended. Positive bowel sounds. No hepatosplenomegaly was noted. EXTREMITIES: Without any cyanosis, clubbing, rash, lesions or peripheral edema. NEUROLOGIC: The patient is oriented to person, place and time. Strength and sensation are grossly intact. SKIN: Normal color, turgor and temperature. No ulcerations or rashes noted. Impression: Diarrhea, body aches with dehydration likely C. difficile colitis Hyponatremia secondary to above Possible underlying acute on chronic renal disease stage III Hypertension Arthritis Plan: Diarrhea, body aches with dehydration likely C. difficile colitis: today diarrhea mild , fever resolved, diarrhea improved but still less frequently though , C diff was neg , she is on IV cipro, will cont for total of 10 days with oral upon DC dehyration resolved she is on IV fluids Cr back to nl she is on schedule imodium Hyponatremia secondary to above: -resolved Possible underlying acute on chronic renal disease stage III: -resolved Hypertension: -Well controlled ,cont lisinopril and Norvasc. Arthritis: on pain meds PRN, cont PT Code Status: Full Code DVT prophylaxis: Heparin New onset A fib -cardio consult noted, will increase BBlocker to 25 mg bid per cardio, start eliqus for stroke prophylaxis Advanced Care Planning-30 minutes: to facility per PT recommendation
[2021-07-31] MEDS: NA CHLORIDE 0.9% 1,000 ML IV SCH ×3 (12:39→22:39)
--- NOTE | 2021-07-31 15:33 | PN ---
Date of Progress Note: 07/31/2021 Subjective: Seen at bedside, doing well. No complaints. Review of Systems: No chest pain, shortness of breath, orthopnea, or cough. No palpitations. All other systems were re viewed and are negative. Physical Examination: Vital Signs: Temperature is 98.9, heart rate is 102, breathing 18, blood pressure is 156/88, and sat urating 97%. General: A pleasant elderly female, no apparent distress. Head and Neck: Pupils are equal and reactive to light. Intact eye movements. No JVD. No cervical lymphadenopathy. Neck: Supple. Thyroid is not enlarged. Lungs: Clear to auscultation bilaterally. No rhonchi, rales, or crackles. No accessory muscle use. Heart: Irregularly irregular. No extra sounds. Abdomen: Soft, nontender. Bowel sounds positive. No organomegaly. No masses or hernia. No rigidi ty or rebound. Extremities: No clubbing, cyanosis. Intact pulses. Skin: No rashes. Neurologic: Alert and awake. No acute focal deficits appreciated. Assessment And Recommendations: Atrial fibrillation, still slightly fast heart rate. Please increas e the metoprolol to 25 mg twice a day as the blood pressure allows and continue anticoagulation with apixaban and if the patient is being discharged, we will be happy to follow up with the patient on an outpatient basis. /CRISTHIAN Voice ID: [id number] Report ID: [id number]
[2021-07-31] MEDS: APIXABAN 5 MG TABLET PO SCH (21:36)
[2021-08-01] MEDS: LOPERAMIDE HCL 2 MG CAPSULE PO SCH ×12 (01:24→23:19)
[2021-08-01 04:32] LABS: Absolute Lymphocytes (CBC) 0.8 K/uL (0.7-4.9); Basophils % 0.2 % (0-1.3); Hematocrit 30.4 % (36.0-45.0); Lymphocytes % 4.8 % (15.3-44.8); MPV 6.9 fL (7.6-11.3); RBC Red Blood Cell Count 3.31 M/uL (3.86-4.86)
[2021-08-01 04:53] LABS: Albumin 1.3 g/dL (3.4-5.0); Bilirubin Total 0.6 mg/dL (0.2-1.0); Potassium 3.9 mmol/L (3.5-5.1)
[2021-08-01] MEDS: METOPROLOL TAR 25 MG TAB PO SCH ×2 (05:17→16:55)
[2021-08-01] MEDS: DIPHENOX/ATROP SULF 1 TAB PO SCH ×4 (05:17→23:19)
[2021-08-01] MEDS: TRAMADOL HCL 50 MG TAB PO PRN (07:18)
[2021-08-01] MEDS ORDERED: POTASSIUM CL SA 10 MEQ TAB PO ONE (09:00)
--- NOTE | 2021-08-01 09:53 | P.PN ---
Subject, Today she is doing well, no CP or SOB, no abd pain , she had one loose stool this am, but no abd pain, DC aborted on monday since family want placement due to her weakness CT scan: COMPARISON: none. TECHNIQUE: Computed axial tomography of the abdomen pelvis was obtained. 100 cc Isovue-300 was administered intravenously. Oral contrast was not requested which limits evaluation of bowel. All CT scans are performed using dose optimization technique as appropriate and may include automated exposure control or mA/KV adjustment according to patient size. FINDINGS: The liver, spleen, pancreas, adrenal and kidneys appear unremarkable. There is no evidence of diverticulitis. Normal appendix. 15 millimeter right adnexal cyst. Small amount of free fluid. Tiny umbilical hernia IMPRESSION: A 15 millimeter right adnexal cyst likely benign. Small amount of ascites within the pelvis. Physical Exam: VS reviewed GENERAL: The patient is a well-developed, well-nourished, in no apparent distress. Alert and oriented x3 fail not steady on her feet VITAL SIGNS: Reviewed HEENT: Neck supple LUNGS: Clear to auscultation. No crackles or wheezes are heard. HEART: Regular rate and rhythm, no appreciable gallops, rubs, murmurs or extra heart sounds ABDOMEN: Soft, nontender, and nondistended. Positive bowel sounds. No hepatosplenomegaly was noted. EXTREMITIES: Without any cyanosis, clubbing, rash, lesions or peripheral edema. NEUROLOGIC: The patient is oriented to person, place and time. Strength and sensation are grossly intact. SKIN: Normal color, turgor and temperature. No ulcerations or rashes noted. Impression: Diarrhea, body aches with dehydration likely C. difficile colitis Hyponatremia secondary to above Possible underlying acute on chronic renal disease stage III Hypertension Arthritis Plan: Diarrhea, body aches with dehydration likely C. difficile colitis: cont to improve,much less frequent, fever resolved, C diff was neg , she is on IV cipro, will cont for total of 10 days with oral upon DC dehyration resolved she is on IV fluids Cr back to nl she is on schedule imodium Hyponatremia secondary to above: -resolved Possible underlying acute on chronic renal disease stage III: -resolved Hypertension: -Well controlled ,cont lisinopril and Norvasc. Arthritis: on pain meds PRN, cont PT New onset A fib -Rated controlled now, cont B Nakita to 25 mg bid per cardio, start eliqus for stroke prophylaxis Code Status: Full Code DVT prophylaxis: Heparin DC plan pending acceptance to facility , pt is too weak to be able to go home Advanced Care Planning-30 minutes: to facility per PT recommendation
[2021-08-01] MEDS: CIPROFLOXACIN 400mg IV 400 MG/200 ML BAG IV SCH ×2 (09:58→20:39)
[2021-08-01] MEDS: FAMOTIDINE 20 MG TAB PO SCH (09:59)
[2021-08-01] MEDS: FOLIC ACID 1 MG TABLET PO SCH (09:59)
[2021-08-01] MEDS: lisinopriL 20 MG TAB PO SCH ×2 (09:59→20:38)
[2021-08-01] MEDS: LACTOBACILLUS/ACIDOPHILUS TAB PO SCH ×3 (10:00→20:38)
[2021-08-01] MEDS: THIAMINE HCL 100 MG TABLET PO SCH (10:00)
[2021-08-01] MEDS: HEPARIN 5000 UNIT/ML 1 ML VIAL SQ SCH ×2 (10:00→20:41)
[2021-08-01] MEDS: APIXABAN 5 MG TABLET PO SCH ×2 (10:00→20:39)
[2021-08-01] MEDS: NA CHLORIDE 0.9% 1,000 ML IV SCH ×3 (10:11→20:46)
--- NOTE | 2021-08-01 13:40 | PN ---
Date of Progress Note: 08/01/2021 Subjective: Seen by bedside, doing well. No complaints. Review of Systems: No chest pain, shortness of breath, orthopnea, or cough. No nausea, vomiting, diarrhea. No abdomina l pain. All other systems were reviewed and are negative. Physical Examination: Vital Signs: Temperature is 97.6, pulse 88, breathing at 18, blood pressure is 118/67, saturating 98 %. General: Pleasant elderly female, in no distress. Head and Neck: Pupils are equal, reactive to light. Intact eye movements. No JVD. No cervical lym phadenopathy. Neck: Supple. Thyroid is not enlarged. Lungs: Clear to auscultation bilaterally. No rhonchi, rales, or crackles. No accessory muscle use. Heart: Irregularly irregular. No extra sounds. Abdomen: Soft, nontender. Bowel sounds positive. No organomegaly. No masses or hernia. No rigidi ty or rebound. Extremities: No clubbing or cyanosis. Intact pulses. Skin: No rash. Neurologic: Alert, awake. No acute focal deficits appreciated. Investigation: Labs were reviewed. Assessment And Recommendations: Atrial fibrillation, rate is controlled at this point. Continue cur rent management. If need be, metoprolol can be increased for better rate control and continue apixaban. Cardiology will sign off on this case and plan to follow up with her as an outpatient. /CRISTHIAN Voice ID: [id number] Report ID: [id number]
[2021-08-02] MEDS: TRAMADOL HCL 50 MG TAB PO PRN ×3 (00:35→17:41)
[2021-08-02] MEDS: LOPERAMIDE HCL 2 MG CAPSULE PO SCH ×8 (01:15→22:05)
[2021-08-02 04:36] LABS: Magnesium 1.7 mg/dL (1.8-2.4); Potassium 4.1 mmol/L (3.5-5.1)
[2021-08-02] MEDS ORDERED: MAGNESIUM SULFATE 1 gm IVPB 1 GM/100 ML BAG IV ONE (04:47)
[2021-08-02] MEDS: DIPHENOX/ATROP SULF 1 TAB PO SCH ×4 (05:00→22:08)
[2021-08-02] MEDS: METOPROLOL TAR 25 MG TAB PO SCH ×2 (05:13→17:41)
[2021-08-02] MEDS: NA CHLORIDE 0.9% 1,000 ML IV SCH (06:22)
[2021-08-02] MEDS: lisinopriL 20 MG TAB PO SCH ×2 (09:12→22:04)
[2021-08-02] MEDS: THIAMINE HCL 100 MG TABLET PO SCH (09:13)
[2021-08-02] MEDS: FAMOTIDINE 20 MG TAB PO SCH (09:13)
[2021-08-02] MEDS: LACTOBACILLUS/ACIDOPHILUS TAB PO SCH ×3 (09:13→22:05)
[2021-08-02] MEDS: HEPARIN 5000 UNIT/ML 1 ML VIAL SQ SCH ×2 (09:14→22:05)
[2021-08-02] MEDS: CIPROFLOXACIN 400mg IV 400 MG/200 ML BAG IV SCH ×2 (09:14→22:05)
[2021-08-02] MEDS: FOLIC ACID 1 MG TABLET PO SCH (09:14)
[2021-08-02] MEDS: APIXABAN 5 MG TABLET PO SCH ×2 (09:14→22:04)
[2021-08-02 13:32] VITALS: O2SAT 96
--- NOTE | 2021-08-02 18:42 | P.PN ---
Subjective Date of Service: 08/02/21 Patient is clinically doing well. Patient's symptoms are much better. Review of Systems 10-point ROS is otherwise unremarkable Physical Examination - Vital Signs Temperature: 97.6 F Blood Pressure: 122/77 Pulse: 113 Respirations: 18 Pulse Ox (%): 96 - Physical Exam General: Alert, In no apparent distress HEENT: Atraumatic, PERRLA, EOMI Neck: Supple, JVD not distended Respiratory: Clear to auscultation bilaterally, Normal air movement Cardiovascular: Regular rate/rhythm, Normal S1 S2 Gastrointestinal: Normal bowel sounds, No tenderness Musculoskeletal: No tenderness Integumentary: No rashes Neurological: Normal speech, Normal tone, Normal affect Lymphatics: No axilla or inguinal lymphadenopathy - Studies Microbiology Data (last 24 hrs): 07/28/21 00:48 Blood - Blood Aerobic Blood Culture - Final 07/28/21 00:48 Blood - Blood Blood Culture Gram Stain - Final 07/28/21 00:48 Blood - Blood Anaerobic Blood Culture - Final No growth in 5 days. 07/28/21 00:42 Blood - Blood Aerobic Blood Culture - Final No growth in 5 days. 07/28/21 00:42 Blood - Blood Anaerobic Blood Culture - Final No growth in 5 days. Medications List Reviewed: Yes Assessment & Plan - Problems (Diagnosis) (1) Diarrhea Status: Acute (2) Hypertension Status: Acute (3) Hyponatremia Status: Acute - Plan 1. Continue with IV hydration 2. Continue with IV antibiotics 3. Continue with pain control 4. NPO 5. General surgery consultation; 6. Monitor labs closely 7. GI and DVT prophylaxis Discharge Plan: Home Plan to discharge in: Greater than 2 days - Advance Directives Does patient have a Living Will: No Does patient have a Durable POA for Healthcare: No - Code Status/Comfort Care Code Status Assessed: Yes Code Status: Full Code Critical Care: No Time Spent Managing PTS Care (In Minutes): 35
[2021-08-03] MEDS: NA CHLORIDE 0.9% 1,000 ML IV SCH ×2 (00:46→11:47)
[2021-08-03] MEDS: LOPERAMIDE HCL 2 MG CAPSULE PO SCH ×5 (00:46→17:31)
[2021-08-03] MEDS: METOPROLOL TAR 25 MG TAB PO SCH ×2 (05:23→17:31)
[2021-08-03] MEDS: DIPHENOX/ATROP SULF 1 TAB PO SCH ×3 (05:23→17:31)
[2021-08-03 06:13] LABS: Magnesium 1.8 mg/dL (1.8-2.4); Potassium 4.1 mmol/L (3.5-5.1)
[2021-08-03] MEDS ORDERED: MAGNESIUM SULFATE 1 gm IVPB 1 GM/100 ML BAG IV ONE (09:00)
[2021-08-03] MEDS: CIPROFLOXACIN 400mg IV 400 MG/200 ML BAG IV SCH (11:31)
[2021-08-03] MEDS: APIXABAN 5 MG TABLET PO SCH (11:32)
[2021-08-03] MEDS: FOLIC ACID 1 MG TABLET PO SCH (11:32)
[2021-08-03] MEDS: LACTOBACILLUS/ACIDOPHILUS TAB PO SCH ×2 (11:32→14:26)
[2021-08-03] MEDS: lisinopriL 20 MG TAB PO SCH (11:33)
[2021-08-03] MEDS: FAMOTIDINE 20 MG TAB PO SCH (11:33)
[2021-08-03] MEDS: TRAMADOL HCL 50 MG TAB PO PRN (11:34)
[2021-08-03] MEDS: THIAMINE HCL 100 MG TABLET PO SCH (11:35)
[2021-08-06 10:54] LABS: Urine Blood 2+ (Negative); Urine Glucose Negative (Negative); Urine Protein Negative (Negative); Urine pH 5.5 (5.0-7.0)
[2021-08-09 01:26] VITALS: BP 122/77; TEMP 97.6
--- NOTE | 2021-08-09 01:29 | P.DS ---
Discharge Date: 08/03/21 Primary Care Provider: BECKY Martell Disposition: TRANSFER TO SNF - REHAB Discharge Condition: GOOD Reason for Admission: Diarrhea, body aches - Problems (1) Diarrhea Status: Acute (2) Hypertension Status: Acute (3) Hyponatremia Status: Acute Brief History of Present Illness: Patient is an 81-year-old female with history of hypertension, arthritis presented to the emergency room with diarrhea and body aches. Patient is visiting in the area. Patient recently diagnosed with UTI. She was given antibiotic treatment by her PCP. She took medication for 3 days and started to notice some diarrhea. She called her PCP who recommended to discontinue medication. She came to the area to visit. Diarrhea was noted. She denied any fever, chills, shortness of breath or chest pain. She had some weakness and body aches today. She came to the ER for further evaluation. In the ER patient was evaluated. Patient appeared slightly dehydrated. Patient received IV fluids. White count 12, hemoglobin 14. Platelet count 425. Urinalysis unremarkable. Sodium 130, potassium 3.5. BUN of 20, creatinine 1.36 with a GFR of 37. Glucose 153. CT scan showed no significant obstruction or inflammation. Patient was given IV fluids in the emergency room. Patient was admitted for observation. Hospital Course: Patient is clinically doing well. Patient diarrhea has improved. Patient's cultures were negative. Patient's C diff was unremarkable. Patient continue with current antibiotic therapy. At this time, patient is stable for discharge home. Vital Signs/Physical Exam: Temp Pulse Resp BP Pulse Ox 97.6 F 113 H 18 122/77 96 08/09/21 01:26 08/09/21 01:26 08/09/21 01:26 08/09/21 01:26 08/09/21 01:26 General: Alert, In no apparent distress, Oriented x3 Laboratory Data at Discharge: WBC 16.50 K/uL (4.3-10.9) H D 08/01/21 04:17 Hgb 10.0 g/dL (12.0-15.0) L 08/01/21 04:17 Hct 30.4 % (36.0-45.0) L 08/01/21 04:17 Plt Count 322 K/uL (152-406) 08/01/21 04:17 Sodium 143 mmol/L (136-145) 08/03/21 05:28 Potassium 4.1 mmol/L (3.5-5.1) 08/03/21 05:28 BUN 22 mg/dL (7-18) H 08/03/21 05:28 Creatinine 0.74 mg/dL (0.55-1.3) 08/03/21 05:28 Glucose 79 mg/dL (74-106) 08/03/21 05:28 Magnesium 1.8 mg/dL (1.8-2.4) 08/03/21 05:28 Total Bilirubin 0.6 mg/dL (0.2-1.0) 08/01/21 04:17 AST 16 U/L (15-37) 08/01/21 04:17 ALT 11 U/L (12-78) L 08/01/21 04:17 Alkaline Phosphatase 108 U/L (45-117) 08/01/21 04:17 Lipase 187 U/L (73-393) 07/27/21 11:10 Home Medications: Amlodipine [Norvasc*] 2.5 mg PO DAILY 07/27/21 Hyoscyamine Sulfate [Levsin TAB*] 0.125 mg SL Q4H PRN 07/27/21 Lisinopril [Zestril] 40 mg PO DAILY 07/27/21 Meloxicam [Mobic] 15 mg PO DAILY 07/27/21 Ciprofloxacin HCl [Cipro 500 MG Tablet] 500 mg PO BID #20 tab 07/30/21 Loperamide [Imodium*] 2 mg PO Q2H cap 07/30/21 Acidophilus/Bulgaricus [Lactinex Tablet Chewable] 1 each PO TID #60 tab.chew 08/03/21 Apixaban [Eliquis] 5 mg PO BID #60 tablet 08/03/21 Diphenox/Atropine [Lomotil*] 1 tab PO Q6H #10 tab 08/03/21 Metoprolol Tartrate [Lopressor*] 25 mg PO BID 6AM 6PM #60 tab 08/03/21 Thiamine HCl [Vitamin B-1*] 100 mg PO DAILY #30 tablet 08/03/21 traMADol HCL [Ultram*] 50 mg PO TID PRN #30 tab 08/03/21 New Medications: Ciprofloxacin HCl [Cipro 500 MG Tablet] 500 mg PO BID #20 tab Apixaban [Eliquis] 5 mg PO BID #60 tablet Acidophilus/Bulgaricus [Lactinex Tablet Chewable] 1 each PO TID #60 tab.chew Diphenox/Atropine [Lomotil*] 1 tab PO Q6H #10 tab Metoprolol Tartrate [Lopressor*] 25 mg PO BID 6AM 6PM #60 tab traMADol HCL [Ultram*] 50 mg PO TID PRN #30 tab PRN Reason: Pain Scale 2-4 (Mild) Thiamine HCl [Vitamin B-1*] 100 mg PO DAILY #30 tablet Physician Discharge Instructions: OK TO DC IV AND DC to SNF at [facility] FOLLOW-UP WITH PRIMARY CARE PROVIDER IN 1-2 WEEKS RETURN TO THE ER IF symptoms worsens CALL or TEXT DR. BETTS AT [phone] IF ANY QUESTIONS REGARDING HOSPITAL STAY. PLEASE CALL THE FLOOR AT [phone] IF ANY MEDICATION OR NURSING QUESTIONS. Diet: AHA Activity: Ad julian Followup: NONE,NONE [Primary Care Provider] - Time spent managing pt's care (in minutes): 35
== END 2021-08-03 17:58 | DRG 871 ==
LOC: ER 10:17 → ERHOLD 17:26 → 4TH 18:01 → OBSVTOIN 07-28 14:48 → 2ND 07-29 16:31
PROVIDERS: ADMIT Family Medicine; ATTEND Family Medicine
DX: A41.9 Sepsis, unspecified organism (principal); E43 Unspecified severe protein-calorie malnutrition; E87.1 Hypo-osmolality and hyponatremia; N17.9 Acute kidney failure, unspecified; K52.9 Noninfective gastroenteritis and colitis, unspecified; Z68.23 Body mass index [BMI] 23.0-23.9, adult; M19.90 Unspecified osteoarthritis, unspecified site; I48.91 Unspecified atrial fibrillation; I12.9 Hypertensive chronic kidney disease with stage 1 through stage 4 chronic kidney disease, or unspecified chronic kidney disease; N18.30 Chronic kidney disease, stage 3 unspecified; E86.0 Dehydration; Z20.822 Contact with and (suspected) exposure to COVID-19
CPT/HCPCS: 0240U; 36415; 71045; 74177; 80048; 80053; 80076; 81003; 81015; 83690; 83735; 84132; 84145; 85025; 87040; 87045; 87046; 87177; 87205; 87209; 87324; 87449; 89055; 93005; 96361; 96374; 96375; 97110; 97116; 97161; 97530; 99284; G0378; J0744; J1644; J2270; J2405; J3010; J3475; J7030; J7040; Q9967; U0003